=== PATIENT | female | born 1975 | race Caucasian/White ===

== ENCOUNTER 2021-09-19 16:19 | Emergency (ER) | payer SELFPAY | END 2021-09-19 18:25 | disposition home or self-care (01) | LOC: ERS 16:19 | DX: S89.92XA Unspecified injury of left lower leg, initial encounter (principal); Z79.899 Other long term (current) drug therapy; W01.0XXA Fall on same level from slipping, tripping and stumbling without subsequent striking against object, initial encounter ==

== ENCOUNTER 2021-11-10 22:48 | Emergency (ER) | payer SELFPAY ==
[2021-11-10] MEDS ORDERED: Ketorolac Tromethamine 30 MG/ML VIAL ONE (23:56)
== END 2021-11-11 00:40 | disposition home or self-care (01) ==
LOC: ERS 22:48
DX: U07.1 COVID-19 (principal); I10 Essential (primary) hypertension
CPT/HCPCS: 71045; 93005; 96372; J1885

== ENCOUNTER 2022-10-09 08:39 | Outpatient (CLI) | payer OTHER | END 2022-10-09 08:40 | disposition home or self-care (01) | LOC: SCSMRI 08:39 | PROVIDERS: ATTEND Family Medicine | DX: G54.0 Brachial plexus disorders (principal) | CPT/HCPCS: 71550 ==

== ENCOUNTER 2024-10-05 12:44 | Inpatient (IN) | payer BC, OTHER ==
[2024-10-05] MEDS ORDERED: Ondansetron PF 4 MG/2 ML Vial ONE (13:54)
[2024-10-05] MEDS ORDERED: Cefepime 2 GM VIAL ONE (13:54)
[2024-10-05] MEDS ORDERED: Morphine 4 MG/ML VIAL ONE (13:54)
[2024-10-05] MEDS ORDERED: Hyoscyamine SL 0.125 MG TAB SL PRN (16:00)
[2024-10-05] MEDS ORDERED: Morphine 2 MG/ML VIAL SLOW IVP SCH (16:00)
[2024-10-06] MEDS ORDERED: Acetaminophen 500 MG TAB ONE (13:42)
[2024-10-06] MEDS ORDERED: Cefepime 2 GM VIAL ONE (13:42)
[2024-10-06] MEDS ORDERED: Lactated Ringer's 1,000 ML BAG ONE (13:42)
[2024-10-06] MEDS ORDERED: Venlafaxine HCl 37.5 MG TAB ONE (15:19)
[2024-10-06] MEDS ORDERED: Venlafaxine 75 MG TAB ONE (15:19)
[2024-10-06] MEDS ORDERED: Hydrochlorothiazide 25 MG TAB ONE (15:19)
[2024-10-07 01:22] VITALS: BMI 33.0
[2024-10-07] MEDS ORDERED: Ondansetron PF 4 MG/2 ML Vial IVP PRN (01:36)
[2024-10-07] MEDS ORDERED: Acetaminophen 500 MG TAB PO PRN (01:37)
[2024-10-07] MEDS ORDERED: Loperamide HCl 2 MG CAP PO PRN (01:37)
[2024-10-07] MEDS: Lactated Ringer's 1,000 ML IV SCH (05:27)
[2024-10-07] MEDS: Cefepime 2 GM in Sodium Chloride 0.9% 100 ML IVPB SCH (05:27)
[2024-10-07 06:36] LABS: #Basophils 0.02 10x3/uL (0.0-0.2); #Eosinophils 0.19 10x3/uL (0.0-0.7); #Monocytes 0.77 10x3/uL (0.11-0.59); #Neutrophils 3.35 10x3/uL (1.40-6.50); %Basophils 0.3 % (0.0-1.0); %Eosinophils 2.8 % (0.0-10.0); %Lymphocytes 35.5 % (21.0-51.0); %Monocytes 11.4 % (0.0-10.0); %Neutrophils 49.7 % (42.0-75.0); Hematocrit 32.4 % (36.0-47.0); Hemoglobin 10.3 g/dL (12.0-16.0); Mean Corpuscular HGB CONC 31.8 g/dL (32.0-36.0); Mean Corpuscular Hemoglobin 24.5 pg (27.0-31.0); Mean Platelet Volume 10.3 fL (7.4-10.4); Platelet Count 305 10x3/uL (130-400); RBC Distribution Width 20.5 % (11.5-14.5); Red Blood Cell (RBC) Count 4.21 mill/uL (4.20-5.40); White Blood Cell (WBC) Count 6.74 10x3/uL (4.8-10.8)
[2024-10-07 09:35] LABS: ALT (SGPT) 6 U/L (8-55); AST (SGOT) 11 U/L (5-34); Albumin 2.6 g/dL (3.5-5.0); Alkaline Phosphatase 86 U/L (40-110); Anion Gap 10 mmol/L (10-20); BUN (Urea Nitrogen) 12 mg/dL (9.8-20.1); Bilirubin, Total 0.6 mg/dL (0.2-1.2); Calc. Creatinine Clearance 146 mL/min (70-130); Calcium 8.5 mg/dL (7.8-10.44); Carbon Dioxide 35 mmol/L (22-29); Chloride 102 mmol/L (98-107); Estimated GFR 96; Globulin 3.4 g/dL (2.4-3.5); Glucose 84 mg/dL (70-105); Potassium 3.9 mmol/L (3.5-5.1); Sodium 143 mmol/L (136-145)
[2024-10-07 10:18] LABS: #Basophils Less than 0.03 10x3/uL (0.0-0.2); %Basophils 0.4 % (0.0-1.0); %Lymphocytes 41.4 % (21.0-51.0); %Monocytes 10.4 % (0.0-10.0); %Neutrophils 44.6 % (42.0-75.0); Hematocrit 35.2 % (36.0-47.0); Hemoglobin 11.3 g/dL (12.0-16.0); Mean Corpuscular HGB CONC 32.1 g/dL (32.0-36.0); Mean Corpuscular Hemoglobin 24.8 pg (27.0-31.0); Mean Corpuscular Volume 77.4 fL (78.0-98.0); Mean Platelet Volume 9.7 fL (7.4-10.4); Platelet Count 336 10x3/uL (130-400); RBC Distribution Width 20.3 % (11.5-14.5); Red Blood Cell (RBC) Count 4.55 mill/uL (4.20-5.40)
[2024-10-07] MEDS: Hydrochlorothiazide 25 MG TAB PO SCH (10:29)
[2024-10-07] MEDS: Venlafaxine HCl XR 150 MG CAP PO SCH (10:30)
[2024-10-07] MEDS: Venlafaxine XR 37.5 MG CAP PO SCH (10:30)
[2024-10-07 10:37] LABS: ALT (SGPT) 13 U/L (8-55); AST (SGOT) 13 U/L (5-34); Albumin 3.3 g/dL (3.5-5.0); Alkaline Phosphatase 48 U/L (40-110); Anion Gap 12 mmol/L (10-20); BUN (Urea Nitrogen) 8 mg/dL (9.8-20.1); Bilirubin, Total 0.2 mg/dL (0.2-1.2); Calc. Creatinine Clearance 127 mL/min (70-130); Calcium 8.6 mg/dL (7.8-10.44); Carbon Dioxide 29 mmol/L (22-29); Chloride 105 mmol/L (98-107); Estimated GFR 82; Globulin 3.4 g/dL (2.4-3.5); Glucose 94 mg/dL (70-105); Potassium 3.6 mmol/L (3.5-5.1); Protein, Total 6.7 g/dL (6.0-8.3); Sodium 142 mmol/L (136-145)
[2024-10-08 08:33] VITALS: BP 144/81; TEMP 98
[2024-10-10 12:09] LABS: Lactic Acid 1.58 mmol/L (0.5-2.2)
== END 2024-10-08 13:09 | disposition home or self-care (01) | DRG 872 ==
LOC: ERS 12:44 → T4-A 16:11 → OBSVTOIN 10-07 10:39
PROVIDERS: ADMIT Family Medicine; ATTEND Family Medicine
DX: A41.9 Sepsis, unspecified organism (principal); N12 Tubulo-interstitial nephritis, not specified as acute or chronic; E87.20 Acidosis, unspecified; N17.9 Acute kidney failure, unspecified; K21.9 Gastro-esophageal reflux disease without esophagitis; F41.9 Anxiety disorder, unspecified; F32.A Depression, unspecified; I10 Essential (primary) hypertension; R19.7 Diarrhea, unspecified; Z88.2 Allergy status to sulfonamides; Z88.5 Allergy status to narcotic agent; Z98.51 Tubal ligation status; Z90.49 Acquired absence of other specified parts of digestive tract; D50.9 Iron deficiency anemia, unspecified; F90.9 Attention-deficit hyperactivity disorder, unspecified type
CPT/HCPCS: 36415; 71275; 74174; 74176; 80053; 83605; 85025; 86850; 86900; 86901; 87040; 87086; 93005; J0692; J7120